=== PATIENT | male | born 1950 | race Caucasian/White ===

== ENCOUNTER 2017-02-25 10:19 | Emergency (ER) | payer MEDICARE, OTHER ==
[~2017-02-25] VITALS: Ht 182.9 cm; Wt 76.2 kg
[2017-02-25 10:34] LABS: BASOPHILS % (AUTO) 0.5 % (0.0-2.0); EOSINOPHILS # (AUTO) 0.2 /CMM (0.0-0.7); EOSINOPHILS % (AUTO) 2.7 % (0.0-6.0); HEMATOCRIT 44 % (39-51); HEMOGLOBIN 14.3 g/dL (13.5-17.5); LYMPHOCYTES # (AUTO) 2.4 /CMM (0.8-4.8); LYMPHOCYTES % (AUTO) 26.8 % (20.0-44.0); MEAN CORPUSCULAR HEMOGLOBIN 29 PG (26.0-33.0); MEAN CORPUSCULAR HGB CONC 33 g/dl (31.0-36.0); MEAN CORPUSCULAR VOLUME 88 fL (80-96); MONOCYTES # (AUTO) 0.6 /CMM (0.1-1.30); MONOCYTES % (AUTO) 6.8 % (2.0-12.0); NEUTROPHILS # (AUTO) 5.9 /CMM (1.8-8.9); NEUTROPHILS % (AUTO) 63.2 % (43.0-81.0); PLATELET COUNT (AUTO) 292 /CMM (150-450); RDW COEFFICIENT OF VARIATION 12.3 (11.5-15.0); WHITE BLOOD COUNT (AUTO) 9.1 K/uL (4.3-11.0)
[2017-02-25 10:44] LABS: CALCIUM, SERUM 8.9 mg/dL (8.5-10.1); CARBON DIOXIDE 27 mmol/L (21-32); CHLORIDE 106 mmol/L (98-107); CREATININE 0.9 mg/dL (0.6-1.3); GFR 85 mL/min (>60); GLUCOSE 112 mg/dL (74-106); POTASSIUM 3.7 mmol/L (3.5-5.1); SODIUM SERUM 143 mmol/L (136-145); UREA NITROGEN, BLOOD 13 mg/dL (7-18)
[2017-02-25 10:48] LABS: INR 0.94 (0.87-1.13); PROTHROMBIN TIME 9.8 SECS (9.5-12.7)
[2017-02-25 10:50] LABS: ALANINE AMINOTRANSFERASE 21 U/L (12-78); ALBUMIN 3.6 g/dL (3.4-5.0); ALKALINE PHOSPHATASE 99 U/L (46-116); ASPARTATE AMINOTRANSFERASE 20 U/L (15-37); BILIRUBIN,DIRECT 0.1 mg/dL (0.0-0.2); BILIRUBIN,TOTAL 0.2 mg/dL (0.2-1.0); TOTAL PROTEIN, SERUM 7.4 g/dL (6.4-8.2)
[2017-02-25 10:52] LABS: TROPONIN I < 0.017 ng/mL (0.00-0.056)
[2017-02-25 11:18] VITALS: BP 130/76
--- NOTE | 2017-02-25 11:19 | NUR ---
IV removed. Catheter intact and site benign. Pressure and 4x4 applied to site. No bleeding noted.Patient does not wish to proceed with medical care recommended by Dr. Meyer. Patient given information related to possible complications, up to and including , which could occur as a result of leaving the hospital at this time. Patient verbalizes understanding of risks involved due to leaving against medical advice. Patient has signed AMA form.
--- NOTE | 2017-02-25 11:28 | NUR ---
EKG NOT COMPLETED. PATIENT REFUSED PRIOR TO MINI. DR VILLARREAL MADE AWARE.
== END 2017-02-25 12:33 | disposition left against medical advice (07) ==
LOC: EDBD → ER 10:21
DX: R07.9 Chest pain, unspecified (principal); F10.129 Alcohol abuse with intoxication, unspecified; C18.9 Malignant neoplasm of colon, unspecified; C61 Malignant neoplasm of prostate; F17.200 Nicotine dependence, unspecified, uncomplicated; F12.90 Cannabis use, unspecified, uncomplicated
CPT/HCPCS: 36415; 71010-TC; 80048-TC; 80076-TC; 84484-TC; 85025-TC; 85730-TC; A4606; Z7610

== ENCOUNTER 2017-02-25 12:03 | Emergency (ER) | payer MEDICARE, OTHER ==
[~2017-02-25] VITALS: Ht 182.9 cm; Wt 68.0 kg
--- NOTE | 2017-02-25 12:15 | NUR ---
PT TO ED ROOM 06. BIB RA FROM URGENT CARE, PT STATES HE IS SUICIDAL WITHOUT A PLAN. VERBALLY AND PHYSICALLY AGGRESIVE. SI PRECAUTIONS INITIATED. STRONG SMELL OF ETOH ON BREATH. CHANGED TO GOWN. PERSONAL BELONGINGS PLACED FROM PATIENT'S ROOM. CONNECTED TO MONITOR. SEEN AND EVALUATED BY ED PROVIDER.
[2017-02-25] MEDS ORDERED: WATER FOR INJECTION,STERILE 10 ML ONE (12:38)
[2017-02-25] MEDS ORDERED: OLANZAPINE 10 MG VIAL IM ONE ×2 (12:38→13:00)
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
[2017-02-25] MEDS ORDERED: LORAZEPAM INJ 2 MG/ML VIAL ONE ×2 (13:45→16:00)
--- NOTE | 2017-02-25 13:57 | NUR ---
PT CONNECTED TO MONITOR. VSS.
[2017-02-25] MEDS ORDERED: LORAZEPAM INJ 2 MG/ML VIAL IM ONE ×2 (14:00→16:00)
[2017-02-25 14:29] LABS: SALICYLATE 2.2 mg/dL (2.8-20.0)
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
[2017-02-25] MEDS ORDERED: diphenhydrAMINE HCL 50 MG/ML VIAL ONE (14:58)
[2017-02-25] MEDS ORDERED: HALOPERIDOL LACTATE INJ 5 MG/ML VIAL ONE (14:58)
[2017-02-25] MEDS ORDERED: diphenhydrAMINE HCL 50 MG/ML VIAL IM ONE (15:00)
[2017-02-25] MEDS ORDERED: HALOPERIDOL LACTATE INJ 5 MG/ML VIAL IM ONE (15:00)
--- NOTE | 2017-02-25 16:38 | NUR ---
Patient is resting comfortably in bed. VSS
--- NOTE | 2017-02-25 18:12 | NUR ---
CALLED [facility] FOR PSYCH EVAUSTIN, SAID SHE WILL CALL ME BACK
--- NOTE | 2017-02-25 18:25 | NUR ---
Patient is resting comfortably in bed. VSS
--- NOTE | 2017-02-25 18:25 | NUR ---
RECIEVED CALL BACK FROM MONAE WELDON [phone]
--- NOTE | 2017-02-25 19:31 | NUR ---
CALLED NURSING SUP. FOR TAXI VOUCHER
--- NOTE | 2017-02-25 19:35 | NUR ---
Patient discharged to home in stable condition. Written and verbal after care instructions given. Patient verbalizes understanding of instruction. ambulatory with a steady gait. nad. vs wnl.
[2017-02-25 19:36] VITALS: BP 130/75
== END 2017-02-25 19:36 | disposition home or self-care (01) ==
LOC: ER 12:05 → EDBD 12:05 → ER 19:36
DX: F91.9 Conduct disorder, unspecified (principal); R45.851 Suicidal ideations; C18.9 Malignant neoplasm of colon, unspecified; C61 Malignant neoplasm of prostate; F17.200 Nicotine dependence, unspecified, uncomplicated
CPT/HCPCS: 36415; 80329; 96372 ×5; 99284; A4606; G0480 ×2; J1200; J1630; J2060 ×2; J3490; G6039-TC; Z7610

== ENCOUNTER 2018-01-08 19:15 | Inpatient (IN) | payer OTHER, MEDICARE ==
[~2018-01-08] VITALS: Ht 172.7 cm; Wt 64.9 kg
--- NOTE | 2018-01-08 19:20 | NUR ---
CYNTHIA RA FOR SCALP LAC S/P GLF. +ETOH. NAD NOTED, VSS, RESP EVEN AND UNLABORED, PT WAS PUT ON MONITOR, WAITING FOR MD CUEVAS.
[2018-01-08] MEDS ORDERED: LIDOCAINE HCL/PF 2 % 5ML SDV 5 ML VIAL ONE (19:57)
[2018-01-08] MEDS ORDERED: OLANZAPINE 10 MG VIAL IM ONE ×2 (20:00→20:02)
[2018-01-08 20:14] LABS: BASOPHILS # (AUTO) 0.1 /CMM (0.0-0.2); BASOPHILS % (AUTO) 0.9 % (0.0-2.0); EOSINOPHILS # (AUTO) 0.3 /CMM (0.0-0.7); EOSINOPHILS % (AUTO) 5.2 % (0.0-6.0); HEMATOCRIT 41 % (39-51); LYMPHOCYTES # (AUTO) 2.4 /CMM (0.8-4.8); LYMPHOCYTES % (AUTO) 35.9 % (20.0-44.0); MEAN CORPUSCULAR HEMOGLOBIN 28 PG (26.0-33.0); MEAN CORPUSCULAR HGB CONC 34 g/dl (31.0-36.0); MEAN CORPUSCULAR VOLUME 83 fL (80-96); MONOCYTES # (AUTO) 0.6 /CMM (0.1-1.30); MONOCYTES % (AUTO) 9.6 % (2.0-12.0); NEUTROPHILS # (AUTO) 3.3 /CMM (1.8-8.9); NEUTROPHILS % (AUTO) 48.4 % (43.0-81.0); PLATELET COUNT (AUTO) 232 /CMM (150-450); RDW COEFFICIENT OF VARIATION 13.4 (11.5-15.0); RED BLOOD CELL COUNT(AUTO) 4.95 MIL/uL (4.5-6.0); WHITE BLOOD COUNT (AUTO) 6.7 K/uL (4.3-11.0)
[2018-01-08 20:19] LABS: CALCIUM, SERUM 9.2 mg/dL (8.5-10.1); CREATININE 1.1 mg/dL (0.6-1.3); POTASSIUM 3.3 mmol/L (3.5-5.1)
--- NOTE | 2018-01-08 20:20 | NUR ---
PT WAS REPOSITIONED, NO NEW SKIN BREAKDOWN NOTED, CHECK FOR CIRCULATION.
--- NOTE | 2018-01-08 20:21 | NUR ---
RASHMI WATKINS AT BS.
[2018-01-08] MEDS ORDERED: LORAZEPAM INJ 2 MG/ML VIAL ONE (20:37)
--- NOTE | 2018-01-08 20:59 | NUR ---
PT UNABLE TO STAY STILL FOR CT SCANS, ER WILL CALL WHEN READY.
[2018-01-08] MEDS ORDERED: LORAZEPAM INJ 2 MG/ML VIAL IV ONE (21:00)
--- NOTE | 2018-01-08 21:13 | NUR ---
pt to ctscan.
--- NOTE | 2018-01-08 21:24 | NUR ---
HAD PT ON CT SCANNER, PT WILL NOT COOPERATE & UNABLE TO STAY STILL FOR SCAN. UNABLE TO COMPLETE CT SCANS, RETURNED PT TO ER.
--- NOTE | 2018-01-08 21:29 | NUR ---
PER JEFF UNABLE TO DO THE CTSCANMD AWARE.
[2018-01-08] MEDS ORDERED: HALOPERIDOL LACTATE INJ 5 MG/ML VIAL ONE ×2 (22:11→23:19)
[2018-01-08] MEDS ORDERED: HALOPERIDOL LACTATE INJ 5 MG/ML VIAL IM ONE ×2 (22:30→23:00)
--- NOTE | 2018-01-08 23:25 | NUR ---
PT MEDICATED. PT ON TITLE ONE KINDERGARTEN TEACHER. AT BEDSIDE
[2018-01-09] VITALS (37 sets, daily range): BP systolic 54–163; BP diastolic 19–116
--- NOTE | 2018-01-09 00:07 | NUR ---
PT RETURNED FROM CT.
--- NOTE | 2018-01-09 00:50 | NUR ---
PT PLACED ON A BEDPAN. PT IS NOT COMFORTABLE. BED POWELL ADJUSTED.
--- NOTE | 2018-01-09 01:00 | NUR ---
PT PULLED OUT BEDPAN FROM UNDERNEATH HIMSELF.
--- NOTE | 2018-01-09 01:02 | NUR ---
PT PLACED BACK ON THE BEDPAN.
--- NOTE | 2018-01-09 01:05 | NUR ---
HARSHA, PT'S , CAN BE REACHED AT [phone]
[2018-01-09] MEDS ORDERED: PROPOFOL 100 ML ONE (01:36)
--- NOTE | 2018-01-09 01:38 | NUR ---
MARGIE MCKEON IVP 150MG SUCCINYLCHOLINE RAC 20G
--- NOTE | 2018-01-09 01:38 | NUR ---
RT EMMANUELLE, ELECTRICIAN CONSTRUCTOR SUPERVISOR CEDRIC, MD FLAKO NATARAJAN AT BEDSIDE FOR INTUBATION SETUP
--- NOTE | 2018-01-09 01:38 | NUR ---
LINDA HANSON ADMIN 20MG ATOMEDATE IVP RAC 20G
--- NOTE | 2018-01-09 01:40 | NUR ---
Michaela lunsford in EDM - 01/09/18 at 0156 by LIT INTUBATION COMPLETE. 71/2 AND 23 AT THE LIP
--- NOTE | 2018-01-09 01:40 | NUR ---
INTUBATION COMPLETE. 7.5 AND 23 AT THE LIP
--- NOTE | 2018-01-09 01:40 | NUR ---
PT ORALLY INTUBATED VIA ETT #7.5 23 CM @ LIP. PT PLACED ON NOTED VENT SETTINGS PER DR ARRIOLA. VENT PLUGGED INTO RED OUTLET. ALARMS ARE SET AND AUDIBLE. AMBU BAG BEDSIDE, WILL CONTINUE TO MONITOR Addendum: 01/09/18 at 0221 by VASQUEZ SILVA RT Amended: Links added.
--- NOTE | 2018-01-09 01:42 | NUR ---
MARGIE MCKEON IVP RAC20G 6MG VECURONIUM
--- NOTE | 2018-01-09 01:42 | NUR ---
VENT SETTINGS: AC 14 VT 500 FI02 50% PEEP 5
--- NOTE | 2018-01-09 01:43 | NUR ---
MARGIE MCKEON, RT EMMANUELLE OFF TO CT
--- NOTE | 2018-01-09 01:55 | NUR ---
RECEIVED PT FROM MARGIE MCKEON FOR KADY.
--- NOTE | 2018-01-09 01:57 | NUR ---
PT RETURNED FROM CT.
--- NOTE | 2018-01-09 01:59 | NUR ---
Michaela lunsford in [facility] - 01/09/18 at 0200 by LIT PT BACK FROM CT
[2018-01-09] MEDS ORDERED: PROPOFOL 100 ML IV ONE (02:10)
--- NOTE | 2018-01-09 02:18 | NUR ---
XRAY AT BEDSIDE
--- NOTE | 2018-01-09 02:20 | NUR ---
RT AT BEDSIDE FOR ABG
--- NOTE | 2018-01-09 02:25 | NUR ---
ICU 255
--- NOTE | 2018-01-09 02:26 | NUR ---
REPORT GIVEN TO MARGIE BAPTISTE FOR ICU 255
[2018-01-09] MEDS ORDERED: HYDROCODONE/APAP 5/325MG 1 EACH TABLET PO PRN (02:30)
[2018-01-09] MEDS ORDERED: ONDANSETRON HCL/PF 4 MG/2 ML VIAL IVP PRN (02:30)
[2018-01-09] MEDS ORDERED: MAGNESIUM HYDROXIDE 30 ML UDC PO PRN (02:30)
[2018-01-09] MEDS ORDERED: VECURONIUM 10 MG VIAL IV ONE ×2 (02:30→23:34)
[2018-01-09] MEDS ORDERED: ETOMIDATE 2 MG/ML VIAL IV ONE ×2 (02:30→23:34)
[2018-01-09] MEDS ORDERED: MAG HYDROX/AL HYDROX/SIMETH 30 ML UDC PO PRN (02:30)
[2018-01-09] MEDS ORDERED: SUCCINYLCHOLINE CHLORIDE 20 MG/ML VIAL IV ONE ×2 (02:30→23:34)
[2018-01-09] MEDS ORDERED: LORAZEPAM INJ 2 MG/ML VIAL IV PRN ×2 (02:30→16:00)
[2018-01-09] MEDS ORDERED: ACETAMINOPHEN 325 MG TABLET PO PRN (02:30)
[2018-01-09] MEDS ORDERED: Z GUARD REMEDY 2 OZ OINT TP PRN (02:30)
--- NOTE | 2018-01-09 02:43 | NUR ---
RT NOTE ABG RESULTS GIVEN TO DR ARRIOLA. NO NEW CHANGES MADE
[2018-01-09 02:46] LABS: ABG PCO2 46.1 mmHg (35.0-45.0); ABG PH 7.394 (7.350-7.450); ABG PO2 135.5 mmHg (75.0-100.0); AaDO2 169.1 mmHg; COHb 2.6 % (0.5-1.5); MetHb 0.5 % (0.0-1.5); SITE, ABG Right Radial; VENT MODE, BG AC 14 500 50% +5
--- NOTE | 2018-01-09 03:00 | NUR ---
ETT ADJUSTED TO 25CM @ THE LIP PER DR ARRIOLA REQUEST Addendum: 01/09/18 at 0631 by VASQUEZ SILVA RT Amended: Links added.
--- NOTE | 2018-01-09 03:00 | NUR ---
received pt from ER, s/p ETOH intoxication, intubated, sedated on diprivan at 50mcg, SR, lungs clear, no edema, NPO, diaper on, wounds documented, wound care done, v/s stable, no pain, at the bedside.
--- NOTE | 2018-01-09 03:09 | NUR ---
PT TRANSFERRED PER ACLS PROTOCOL.
[2018-01-09] MEDS: IV NS 0.9% 1,000 ML IV SCH ×3 (03:11→22:30)
[2018-01-09] MEDS: PROPOFOL 100 ML IV PRN ×6 (03:14→13:24)
--- NOTE | 2018-01-09 07:30 | NUR ---
ICU/RN: Pt received in bed, intubated, tolerating current vent settings, breathing even and unlabored, airway cleared of secretions. R eye sutures in place, site clean and well approximated, forehead dressing in place. L elbow swelling noted. Bilat heels offloaded, dressings C/D/I. SR on monitor. Restraint care rendered. Alarm sounds audible. Will cont to monitor pt.
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
[2018-01-09 09:24] LABS: ABG BASE EXCESS 3.4 mmol/L; ABG OXYGEN SATURATION 96.4 % (92.0-98.5); ABG PCO2 50.5 mmHg (35.0-45.0); ABG PH 7.384 (7.350-7.450); ABG PO2 92.8 mmHg (75.0-100.0); AaDO2 61.8 mmHg; COHb 1.2 % (0.5-1.5); MetHb 0.6 % (0.0-1.5); O2Hb 94.7 % (94.0-97.0); SITE, ABG Right Radial; VENT MODE, BG AC 14 500 30% +0
[2018-01-09] MEDS ORDERED: HYDROGEL DRESSING 90 GM TUBE TP SCH (09:30)
[2018-01-09] MEDS ORDERED: HYDROGEL DRESSING 90 GM TUBE TP PRN (09:30)
[2018-01-09] MEDS ORDERED: DC PROPOFOL WHEN EXTUBATED XX PRN (11:00)
[2018-01-09] MEDS ORDERED: BENZ0.5T3 PO (11:04)
[2018-01-09] MEDS ORDERED: DIAZ10TA PO (11:04)
[2018-01-09] MEDS ORDERED: LAMO25TA5 PO (11:04)
[2018-01-09] MEDS ORDERED: QUET25TA PO (11:04)
[2018-01-09] MEDS ORDERED: POLY17PO4 PO (11:04)
[2018-01-09] MEDS ORDERED: Folic acid 1 MG in IV D5W 50 ML IV SCH (12:00)
[2018-01-09] MEDS ORDERED: FEE PK DOSING 1 MIN EA MC ONE (12:00)
[2018-01-09] MEDS ORDERED: Thiamine 100 MG in IV D5W 50 ML IV SCH (12:00)
[2018-01-09] MEDS: PIPERACILLIN /TAZOBACTAM 4.5 G in IV D5W 50 ML IV SCH ×2 (12:05→17:50)
[2018-01-09] MEDS ORDERED: VANCOMYCIN 0.75 GM in IV D5W 250 ML IV SCH (13:00)
[2018-01-09] MEDS ORDERED: IOHEXOL-300 100 ML VIAL IV ONE (14:28)
[2018-01-09] MEDS ORDERED: IV NS 0.9% 250 ML IV ONE (14:29)
[2018-01-09] MEDS: ALBUTEROL HALF STRENGTH 1.25 MG/3 ML VIAL.NEB NEB SCH ×4 (15:04→22:31)
[2018-01-09] MEDS: IPRATROPIUM NEB FS 0.5 MG/2.5 ML AMPUL.NEB NEB SCH ×3 (15:04→22:31)
[2018-01-09 15:30] LABS: ABG BASE EXCESS 5.1 mmol/L; ABG OXYGEN SATURATION 95.3 % (92.0-98.5); ABG PH 7.494 (7.350-7.450); AaDO2 94.3 mmHg; MetHb 0.5 % (0.0-1.5); O2Hb 93.9 % (94.0-97.0); PEEP,BG 5 cm H2O; SITE, ABG Right Radial; VENT MODE, BG CPAP PSV 10
[2018-01-09] MEDS: LORAZEPAM INJ 2 MG/ML VIAL IVP PRN ×4 (15:40→21:29)
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
--- NOTE | 2018-01-09 15:46 | NUR ---
pt extubated with md at bedside. zero distress noted pt. able to fallow simple commands. b/s equal.
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
[2018-01-09] MEDS: HALOPERIDOL LACTATE INJ 5 MG/ML VIAL IV PRN ×2 (16:06→20:20)
[2018-01-09] MEDS ORDERED: QUETIAPINE FUMARATE 100 MG TABLET PO SCH (17:00)
--- NOTE | 2018-01-09 17:32 | NUR ---
Social Servies consult called due to possible homelessness. Pt is not yet medically stable. SW will follow up next business day on 01/12/18 to provide appropriate referrals and resources.. Per MARGIE Napier, substance abuse referrals needed.
--- NOTE | 2018-01-09 17:45 | NUR ---
ICU/RN: Pt found in bed, removed all bilat soft wrist restraints, pulled out IVs and invasive monitoring. Refuses to be reoriented and keeps on asking where is. States "I swear I'm going to leave this place and kill you all. I am a man of my words." Pt unable to state place or time. Administered pt's PO meds, tolerated well PO. Reapplied restraints. Alarm sounds audible. Will monitor closely.
[2018-01-09] MEDS ORDERED: DIVALPROEX SODIUM 125 MG CAP.SPRINK PO SCH (18:00)
--- NOTE | 2018-01-09 19:10 | NUR ---
ICU/RN: Pt's at bedside, pt is calmer and agrees to eat dinner. However still remains hostile to staff. Care endorsed to pm rn for KADY
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
--- NOTE | 2018-01-09 22:22 | NUR ---
FIBREGLASS LAMINATOR DF PT AT BEDSIDE ARGUING WITH PT, PT AGITATION INCREASING TOWARDS . I ASKED TO PLEASE GO HO HOME SO SHE MAY REST AND ALLOW PT TO REST. PT REFUSES O2 SAT MONITORING PT KEEPS TAKING OFF O2 SAT AND REFUSES TO HAVE IT ON. PT OCCASIONALLY REMOVING EKG MONITORING CABLES, PT RESTLESS,AGITATED MAKING IT DIFFICULT TO MONITOR PT. PT 1:1 WITH RN AT BEDSIDE FOR SAFETY. VSS.NAD NOTED.
--- NOTE | 2018-01-09 23:18 | NUR ---
HAMMER REPAIRER DF PT RETURNED TO ROOM ARGUING WITH PT. PT AGITATED REMOVING RESTRAINTS, ATTEMPTING TO GET OUT OF BED. I ASKED TO PLEASE GO HOME OR GO TO WAITING ROOM WHILE PT IS AGITATED SO THAT HE MAY CALM DOWN. PT REFUSED TO LEAVE ROOM. SECURITY CALLED AT BEDSIDE.PT DECIDED TO SIGN OUT AGAINST MEDICAL ADVICE. PT IS A/OX4 VSS, NSR AT 85 BPM BP OF 143/79. DR MAN CALLED AND IS AWARE PT WANTS TO LEAVE AGAINST MEDICAL ADVICE. PT SIGNED FORM AWARE OF RISK AND BENEFITS OF LEAVING AGAINST MEDICAL ADVICE.PT DEPARTED UNIT WITH SECURITY TEAM,RN, AND PT,S .
--- NOTE | 2018-01-12 17:40 | NUR ---
Per RN Ned patient has left the hospital against medical advice. SW was unable to conduct assessment and provide resources.
== END 2018-01-09 23:35 | disposition left against medical advice (07) | DRG 133 ==
LOC: ER 19:17 → ICU 01-09 02:38
PROVIDERS: ADMIT Internal Medicine; ATTEND Internal Medicine
PROC: 0BH17EZ Insertion of Endotracheal Airway into Trachea, Via Natural or Artificial Opening (ICD-10-PCS; principal; 2018-01-09)
PROC: 0HQ1XZZ Repair Face Skin, External Approach (ICD-10-PCS; principal; 2018-01-09)
PROC: 5A1935Z Respiratory Ventilation, Less than 24 Consecutive Hours (ICD-10-PCS; principal; 2018-01-09)
DX: J96.02 Acute respiratory failure with hypercapnia (principal); G31.2 Degeneration of nervous system due to alcohol; S09.90XA Unspecified injury of head, initial encounter; F10.229 Alcohol dependence with intoxication, unspecified; F39 Unspecified mood [affective] disorder; E87.6 Hypokalemia; S01.81XA Laceration without foreign body of other part of head, initial encounter; W18.30XA Fall on same level, unspecified, initial encounter; Y93.9 Activity, unspecified; Y92.009 Unspecified place in unspecified non-institutional (private) residence as the place of occurrence of the external cause; T51.0X1A Toxic effect of ethanol, accidental (unintentional), initial encounter; Y90.7 Blood alcohol level of 200-239 mg/100 ml
CPT/HCPCS: 31720; 36415; 36600; 70450-TC; 71045-TC; 71260-TC; 72125-TC; 80048-TC; 82803-TC; 85025-TC; 87081-TC; 94002-TC; 99082-TC; A4606; A6248; A6402; A6403; G0480; J0330; J1630; J2060; J2543; J3370; J3411; J3490; J7030; J7050; J7060; Q9967; Z7610